=== PATIENT | male | born 1995 | race Caucasian/White ===

== ENCOUNTER 2021-09-24 12:05 | Emergency (ER) | payer BC ==
[2021-09-24 13:48] LABS: CORONAVIRUS COVID-19 NAA POSITIVE (NEGATIVE); INFLUENZA A NAA NEGATIVE (NEGATIVE); INFLUENZA B NAA NEGATIVE (NEGATIVE)
== END 2021-09-24 15:05 | disposition home or self-care (01) ==
LOC: MW.ED 12:05
DX: U07.1 COVID-19 (principal)
CPT/HCPCS: 0240U; 99284; 99282